=== PATIENT | male | born 1935 | race Caucasian/White ===

== ENCOUNTER 2021-03-20 08:51 | Emergency (ER) | payer MEDICARE ==
[~2021-03-20] VITALS: Ht 165.1 cm; Wt 73.3 kg
[2021-03-20] MEDS ORDERED: BERBERINE PO (10:00)
[2021-03-20] MEDS ORDERED: LEVO25TA5 (10:00)
[2021-03-20] MEDS ORDERED: APPL300T4 PO (10:00)
[2021-03-20] MEDS ORDERED: METF-838 PO (10:00)
[2021-03-20 11:55] LABS: BASO # 0.1 10^3/uL (0.0-0.2); BASO % 1.3 % (0.0-1.0); EOS # 0.5 10^3/uL (0.0-0.5); EOS % 8.9 % (0.0-3.0); HEMATOCRIT 32.2 % (42.0-52.0); HEMOGLOBIN 10.6 g/dl (13.5-17.5); LYMPH # 1.8 10^3/uL (1.5-5.0); LYMPH % 33.9 % (24.0-44.0); MEAN CORPUSCULAR HEMOGLOBIN 36.7 pg (27.0-33.0); MEAN CORPUSCULAR HGB CONC 32.9 g/dl (32.0-36.5); MEAN CORPUSCULAR VOLUME 111.4 fl (80.0-96.0); MONO # 0.5 10^3/uL (0.0-0.8); NEUTROPHILS # 2.5 10^3/uL (1.5-8.5); NEUTROPHILS % 45.5 % (36.0-66.0); PLATELET COUNT, AUTOMATED 374 10^3/uL (150-450); RED BLOOD COUNT 2.89 10^6/uL (4.30-6.10); WHITE BLOOD COUNT 5.4 10^3/uL (4.0-10.0)
[2021-03-20 12:33] LABS: ALBUMIN 4.2 GM/DL (3.2-5.2); ALT/SGPT 28 U/L (12-78); BILIRUBIN,DIRECT 0.1 MG/DL (0.0-0.2); BILIRUBIN,TOTAL 0.7 MG/DL (0.2-1.0); BLOOD UREA NITROGEN 12 MG/DL (7-18); CALCIUM LEVEL 9.2 MG/DL (8.8-10.2); CARBON DIOXIDE LEVEL 24 MEQ/L (21-32); CHLORIDE LEVEL 108 MEQ/L (98-107); GLOMERULAR FILTRATION RATE > 60.0 (>35); GLUCOSE, FASTING 124 MG/DL (70-100); LIPASE 51 U/L (73-393); SODIUM LEVEL 142 MEQ/L (136-145); TOTAL PROTEIN 7.7 GM/DL (6.4-8.2)
[2021-03-20 13:39] VITALS: BP 121/87
== END 2021-03-20 13:43 | disposition home or self-care (01) ==
LOC: M ED 08:51
DX: R19.7 Diarrhea, unspecified (principal); E11.9 Type 2 diabetes mellitus without complications; Z88.6 Allergy status to analgesic agent

== ENCOUNTER → 2021-10-15 | Outpatient (REF) ==
[~2021-10-15] MED LIST: APPL300T4 PO; BERBERINE PO; LEVO25TA5; METF-838 PO
== END ==
LOC: M LAB 12:35
DX: Z11.52 Encounter for screening for COVID-19 (principal)